=== PATIENT | female | born 1990 | race Two or more races ===

== ENCOUNTER 2017-02-20 07:24 | Day surgery (SDC) | payer SELFPAY ==
[~2017-02-20 07:24] MED LIST: Lactated Ringers 1,000 ML IV SCH
[2017-02-20] MEDS ORDERED: fentaNYL 250 MCG/5 ML SDV ONE (08:07)
[2017-02-20] MEDS ORDERED: Midazolam 1 MG/ML 2 ML SDV ONE (08:07)
[2017-02-20] MEDS ORDERED: Lidocaine 2% 5 ML SDV ONE (08:07)
[2017-02-20] MEDS ORDERED: Ondansetron 4 MG/2 ML SDV ONE (08:07)
[2017-02-20] MEDS ORDERED: Propofol 200 MG/20 ML SDV ONE (08:07)
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
[2017-02-20] MEDS ORDERED: fentaNYL 100 MCG/2 ML SDV IVPUSH PRN (08:09)
[2017-02-20] MEDS ORDERED: diphenhydrAMINE 50 MG/ML SDV ONE (08:54)
[2017-02-20] MEDS ORDERED: Dexamethasone 4 MG/ML 5 ML MDV ONE (08:54)
[2017-02-20] MEDS ORDERED: Ketorolac 30 MG/ML SDV ONE (09:02)
[2017-02-20] MEDS ORDERED: Misoprostol 200 MCG Tab ONE (09:07)
--- NOTE | 2017-02-20 09:50 | PCM.OPNOTE ---
[id number] [facility]. Placement of rectal cytotec Findings: Anteverted uterus that sounded to 9cm. Normal adnexa bilaterally. Pre Op Diagnosis: Retained products of conception. Failed conservative measures Post-Op Diagnosis: Same. Products of conception removed Anesthesia Technique: General LMA Primary Surgeon: Ariadna Riojas Anesthesia Provider: Maribell Curiel Edge Cutter: Linh Garcia Pathology: products of conception Fluid Replacement, Intraop: 1,300 EBL in mLs: 40 Complications: None known Condition: Good Free Text/Narrative:: Intake & Output 02/19/17 02/20/17 02/20/17 22:59 06:59 14:59 Output Total 75 Balance -75 JobID#[id number]
[2017-02-20 12:19] VITALS: BP 116/69
--- NOTE | 2017-02-21 12:41 | OR ---
SURGEON: Ariadna Riojas DATE OF PROCEDURE: 02/20/2017 BRIEF PREOPERATIVE HISTORY: This is a 26-year-old, G2, P0, presented to me initially at [facility] for her established OB visit. During that visit it was discovered that the patient apparently had an anembryonic . The patient had a history of spontaneous years earlier. The patient was counseled on her choices in regard to addressing her anembryonic in regard to expected management versus medicinal treatment versus surgical intervention. The patient at that time, chose no intervention. Shortly thereafter, the patient did undergo heavy vaginal bleeding with passage of what she thought was tissue and clots. The patient eventually was able to follow up in our clinic after she returned from [place] for family . On followup appointment, it was noted that the patient did have retained products of conception. In regard to retained products of conception, the patient desired to try medicinal intervention prior to having surgery as the patient really did not want to undergo surgery. The patient was given prescription for misoprostol 800 mcg per vagina then switch to oral for heavy bleeding every 6 hours x4 doses. After 4 doses, the patient returned to the office. A few days later the patient underwent ultrasound and did note that the patient still have retained products of conception. At this point, the patient was advised for surgical intervention secondary to retained products of conception, not responsive to medicinal treatment. The patient was apprised of the risk of surgery being bleeding, infection, possible damage to bowel, bladder, ureter, nerves, blood vessels, or any other adjacent structures in the pelvis. Possible risk of Asherman syndrome, the least encountered but most severe risk of hysterectomy in this patient, who has no living children of her own. The patient was also apprised of the risk of anesthesia and risk of thromboembolic disease associated with surgery. Knowing all of the above, the patient did consent to suction, dilation, and curettage for removal of retained products of conception. PREOPERATIVE DIAGNOSES: 1. Retained products of conception. 2. Failed conservative measures. POSTOPERATIVE DIAGNOSES: 1. Retained products of conception. 2. Failed conservative measures. 3. Products of conception removed. PROCEDURE PERFORMED: 1. Dilation and curettage. 2. Placement of rectal Cytotec. ANESTHESIA: General with LMA under Dr. Dnay Curiel and Linh Garcia CRNA. FLUID: Fluid replacement in the OR was 1300 mL. ESTIMATED BLOOD LOSS: 40 mL. PATHOLOGY: Products of conception. COMPLICATIONS: None known though secondary to the patient's bleeding, the general curettage in the second half of the surgery was completed under ultrasound guidance. CONDITION: Postop was good. FINDINGS: Anteverted uterus that sounded to 9 cm and normal adnexal bilaterally. DESCRIPTION OF PROCEDURE: The patient was met in the preop holding area, where the patient was identified and taken back to the operating room. The patient was transferred over to her OR bed and Venodynes were active prior to the induction of general anesthesia with LMA. After induction of general anesthesia, the patient was then placed in the dorsal lithotomy position in the [facility]. The patient was examined under anesthesia and found to have approximately 10-week size uterus with bilateral normal palpating adnexa. The patient was then prepped and draped in normal sterile fashion. A time-out was performed to ensure appropriate patient, appropriate physician, and appropriate procedure. The patient did not receive preoperative antibiotics as the patient was on doxycycline the preceding days prior to surgery which consisted of 100 mg b.i.d. and the patient still had remaining additional 2 days of antibiotics to undergo, prophylaxis for endometriosis secondary to retained products of conception. The patient was prepped and draped in the normal sterile fashion. An open-sided Graves speculum was placed in the patient's vagina. Anterior lip of the cervix was grasped with the long Allis clamp. The uterus gently sounded 9 cm. A slightly curved 7 suction curette was used to undergo procedure. The suction was activated and the curette was gently introduced to the uterine fundus and slowly rotated in clockwise fashion and as it was retracted from the uterus, this was done in approximately 3 passes and tissue was noted. The patient at this time after the recovery of tissue with second pass and third pass. The sharp curette was then introduced into the uterine fundus very gently and the uterus was gently scraped. The patient had heavier bleeding with the curettage portion of the procedure. At this point, to ensure that there was no breach of the uterine cavity the ultrasound was used. Ultrasound after sterilely draping the ultrasound probe, the abdominal ultrasound probe was used to locate the uterus and the sharp curette was gently advanced to the uterine fundus with noted slight resistance and this could be seen on the ultrasound. The uterus was then scraped in all 4 quadrants. Once this was complete, the sharp curettage portion of the procedure was completed and the suction curette was passed one more time to remove any remaining blood. This concluded the suction portion of the procedure. From the patient's vagina any excess blood was removed with the sponge on a stick. 1000 mcg of rectal Cytotec was placed. Gloves were changed. The patient was cleansed. The patient was taken down out of [facility]. The patient was eventually moved to her recovery bed. The patient was taken to recovery in awake and stable condition. The patient tolerated the procedure well. Sponge, lap, needle, and instrument counts were correct. CARLEE / JOSEFA /[id number] MTDNeal
== END 2017-02-20 11:07 | disposition home or self-care (01) ==
LOC: MW.SDS 07:24
PROVIDERS: ATTEND Obstetrics & Gynecology
PROC: 10D07Z8 Extraction of Products of Conception, Other, Via Natural or Artificial Opening (ICD-10-PCS; principal; 2017-02-20)
DX: O03.4 Incomplete spontaneous abortion without complication (principal); E66.9 Obesity, unspecified; Z87.891 Personal history of nicotine dependence; Z98.890 Other specified postprocedural states; Z68.29 Body mass index [BMI] 29.0-29.9, adult; Z79.2 Long term (current) use of antibiotics
CPT/HCPCS: 36415; 59812; 85025; 86850; 86900; 86901; A9270; J1100; J1200; J1885; J2250; J2405; J3010; J7120; 01965; 88305; J2704

== ENCOUNTER 2017-06-30 06:41 | Observation (INO) | payer BC ==
[2017-06-30] MEDS ORDERED: Sodium Chloride 0.9% 10 ML Syringe FLUSH PRN (06:43)
[2017-06-30] MEDS ORDERED: Sodium Chloride 0.9% 2.5 ML Syringe FLUSH PRN (06:43)
[2017-06-30] MEDS ORDERED: Morphine 2 MG/ML Syringe IVPUSH ONE (07:06)
[2017-06-30] MEDS ORDERED: Sodium Chloride 0.9% 1,000 ML IV ONE (07:06)
[2017-06-30] MEDS ORDERED: Ondansetron 4 MG/2 ML SDV IVPUSH ONE (07:06)
[2017-06-30] MEDS ORDERED: Iopamidol 755 MG/ML 500 ML Multipack Bottle IVPUSH STA (07:10)
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
[2017-06-30] MEDS ORDERED: HYDROmorphone 1 MG/ML Syringe IVPUSH ONE (07:53)
[2017-06-30] MEDS ORDERED: Sodium Chloride 0.9% 1,000 ML IV STA (08:37)
[2017-06-30] MEDS ORDERED: Sodium Chloride 0.9% 1,000 ML IV SCH (08:45)
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
[2017-06-30] MEDS: Morphine 4 MG/ML Syringe IVPUSH PRN ×2 (11:54→20:56)
[2017-06-30] MEDS ORDERED: Ondansetron 4 MG/2 ML SDV IVPUSH PRN (13:19)
[2017-06-30] MEDS ORDERED: Albuterol 0.083% 2.5 MG/3 ML Neb Soln NEB PRN (13:19)
[2017-06-30] MEDS: metroNIDAZOLE/Normal Saline 500 MG in Premix Bag 1 BAG IV SCH ×3 (13:30→23:59)
[2017-06-30] MEDS: Ciprofloxacin in D5W 400 MG in Premix Bag 1 BAG IV SCH ×2 (14:33)
--- NOTE | 2017-06-30 15:12 | US ---
EXAMINATION: Right upper quadrant ultrasound HISTORY: Pain COMPARISON: 06/30/2017 TECHNIQUE: Grayscale and color Doppler images obtained of the right upper quadrant. FINDINGS: The visualized pancreas appears normal. The liver is normal in contour, echotexture and siz e without a focal hepatic mass. The gallbladder wall thickness is normal. No pericholecystic fluid or shadowing gallstones. Sonographic Ray sign is reported positive. The right kidney measures 10.4 c m [id number] without evidence of hydronephrosis. Common bile duct measures 3 mm. IMPRESSION: 1. Reported positive sonographic Ray sign without secondary signs of cholecystitis.
[2017-06-30] MEDS: Sodium Chloride 0.9% 1,000 ML IV SCH (16:24)
--- NOTE | 2017-06-30 16:59 | CT ---
EXAM DATE: 06/30/17 PATIENT'S AGE: 26 [facility] Facility: [place], [place] Site . Site : 1990 Study: CT Abdomen/Pelvis [id number] 7:58:54 AM Ordering Physician: Isabell Phelps Final Report: INDICATION: Abdominal pain. TECHNIQUE: Contiguous axial images were acquired through the abdomen and pelvis after the intravenous administration of contrast. Sagittal and coronal reconstructions. COMPARISON: None. FINDINGS: Visualized lower chest: Heart size is within normal limits. No pericardial effusion. There is mild bibasilar atelectasis. No pleural fluid. Abdomen and pelvis: The liver, spleen, pancreas, gallbladder, bile ducts, adrenal glands and kidneys are unremarkable. Normal abdominal aorta. The stomach is nondistended. A number of nondilated fluid-filled loops of bowel are noted, with no appreciable bowel wall thickening. The appendix appears unremarkable. No free air. No free fluid. No lymphadenopathy by size criteria. Small fat containing umbilical hernia. Unremarkable urinary bladder. Uterus is present. No suspicious adnexal mass. There is a small cyst versus dominant follicle seen in the left ovary measuring approximately 1.6 cm. Bones: Postsurgical changes are seen in the lumbar spine with changes in the right iliac bone, presumably related to bone graft harvesting. IMPRESSION: 1. There are a number of fluid-filled, nondilated small bowel loops seen scattered throughout the abdomen and pelvis, without associated bowel wall thickening. Findings could be related to a low-grade enteritis. Recommend clinical correlation. 2. No significant findings are seen in the abdomen and pelvis. Incidental findings as noted above. Dictated by Xavier Brower MD @ 06/30/2017 8:13:13 AM Dictated by: Xavier Brower MD @ 06/30/2017 08:13:37 (Electronic Signature) Report Signed by Proxy. MARSHALL
[2017-07-01] MEDS: Ciprofloxacin in D5W 400 MG in Premix Bag 1 BAG IV SCH ×4 (01:11→14:18)
[2017-07-01] MEDS: Sodium Chloride 0.9% 1,000 ML IV SCH ×3 (01:11→19:22)
[2017-07-01] MEDS: Morphine 4 MG/ML Syringe IVPUSH PRN ×3 (03:18→19:22)
[2017-07-01 05:28] LABS: CHLORIDE,CL 108 mmol/L (98-110); SODIUM,NA 139 mmol/L (136-146)
[2017-07-01] MEDS: metroNIDAZOLE/Normal Saline 500 MG in Premix Bag 1 BAG IV SCH ×4 (05:29→23:16)
--- NOTE | 2017-07-01 08:09 | PCM.PN ---
- General Info Date of Service: 07/01/17 Admission Dx/Problem (Free Text): Admission Diagnosis/Problem Admission Diagnosis/Problem Enteritis Subjective Update: Feeling somewhat better today, pain is better, passed some gas after ambulating in hallway. Still bloated feeling and hurts to take a deep breath. No chest pain or SOB. No stools. Functional Status: Reports: Pain Controlled, Ambulating, Urinating - Review of Systems General: Reports: No Symptoms. Denies: Fever Pulmonary: Reports: No Symptoms. Denies: Shortness of Breath Cardiovascular: Reports: No Symptoms. Denies: Chest Pain Gastrointestinal: Reports: Abdominal Pain, Constipation, Other (bloated). Denies: Nausea Genitourinary: Reports: No Symptoms. Denies: Dysuria, Frequency, Burning, Pain Neurological: Reports: No Symptoms Psychiatric: Reports: No Symptoms - Patient Data Vitals - Most Recent: Last Vital Signs Temp 99.4 F 07/01/17 04:00 Pulse 98 07/01/17 04:00 Resp 16 07/01/17 04:00 BP 117/78 07/01/17 04:00 Pulse Ox 94 L 07/01/17 04:00 Weight - Most Recent: 72.5 kg I&O - Last 24 Hours: Intake & Output 06/30/17 07/01/17 07/01/17 22:59 06:59 14:59 Intake Total 1645 1100 Output Total 650 1000 Balance 995 100 Lab Results Last 24 Hours: Laboratory Results - last 24 hr 06/30/17 06/30/17 06/30/17 Range/Units 09:55 13:10 13:10 WBC (4.0-11.0) K/uL RBC (4.30-5.90) M/uL Hgb (12.0-16.0) g/dL Hct (36.0-46.0) % MCV (80.0-98.0) fL MCH (27.0-32.0) pg MCHC (31.0-37.0) g/dL RDW Std Deviation (28.0-62.0) fl RDW Coeff of Alon (11.0-15.0) % Plt Count (150-400) K/uL MPV (7.40-12.00) fL Neut % (Auto) (48.0-80.0) % Lymph % (Auto) (16.0-40.0) % [place] % (Auto) (0.0-15.0) % Eos % (Auto) (0.0-7.0) % Baso % (Auto) (0.0-1.5) % Neut # (Auto) (1.4-5.7) K/uL Lymph # (Auto) (0.6-2.4) K/uL [place] # (Auto) (0.0-0.8) K/uL Eos # (Auto) (0.0-0.7) K/uL Baso # (Auto) (0.0-0.1) K/uL Nucleated RBC % /100WBC Nucleated RBCs # K/uL Sodium (136-146) mmol/L Potassium (3.5-5.1) mmol/L Chloride (98-110) mmol/L Carbon Dioxide (21-31) mmol/L BUN (6.0-23.0) mg/dL Creatinine (0.6-1.5) mg/dL Est Cr Clr Drug Dosing mL/min Estimated GFR (MDRD) ml/min Glucose (60-110) mg/dL Calcium (8.8-10.8) mg/dL Total Bilirubin (0.1-1.5) mg/dL AST (5-40) IU/L ALT (8-54) IU/L Alkaline Phosphatase (40-150) Total Protein (6.0-8.0) g/dL Albumin (3.5-5.0) g/dL Globulin (2.0-3.5) g/dL Albumin/Globulin Ratio (1.3-2.8) Urine Color YELLOW Urine Appearance CLEAR Urine pH 7.0 (5.0-8.0) Ur Specific [place] <= 1.005 (1.001-1.035) Urine Protein NEGATIVE (NEGATIVE) mg/dL Urine Glucose (UA) NEGATIVE (NEGATIVE) mg/dL Urine Ketones NEGATIVE (NEGATIVE) mg/dL Urine Occult Blood TRACE-INTACT (NEGATIVE) Urine Nitrite NEGATIVE (NEGATIVE) Urine Bilirubin NEGATIVE (NEGATIVE) Urine Urobilinogen 1.0 (<2.0) EU/dL Ur Leukocyte Esterase NEGATIVE (NEGATIVE) Urine RBC 0-1 (0-2/HPF) Urine WBC 1-4 (0-5/HPF) Ur Epithelial Cells FEW (NONE-FEW) Urine Bacteria RARE (NEGATIVE) Monoscreen NEGATIVE (NEG) HIV 1&2 Ag/Ab, 4th Gen 0.1 (<1.0) 07/01/17 07/01/17 Range/Units 04:36 04:36 WBC 16.85 H (4.0-11.0) K/uL RBC 4.31 (4.30-5.90) M/uL Hgb 12.7 (12.0-16.0) g/dL Hct 39.0 (36.0-46.0) % MCV 90.5 (80.0-98.0) fL MCH 29.5 (27.0-32.0) pg MCHC 32.6 (31.0-37.0) g/dL RDW Std Deviation 47.1 (28.0-62.0) fl RDW Coeff of Alon 14 (11.0-15.0) % Plt Count 248 (150-400) K/uL MPV 11.50 (7.40-12.00) fL Neut % (Auto) 86.1 H (48.0-80.0) % Lymph % (Auto) 6.7 L (16.0-40.0) % [place] % (Auto) 6.4 (0.0-15.0) % Eos % (Auto) 0.7 (0.0-7.0) % Baso % (Auto) 0.1 (0.0-1.5) % Neut # (Auto) 14.5 H (1.4-5.7) K/uL Lymph # (Auto) 1.1 (0.6-2.4) K/uL [place] # (Auto) 1.1 H (0.0-0.8) K/uL Eos # (Auto) 0.1 (0.0-0.7) K/uL Baso # (Auto) 0.0 (0.0-0.1) K/uL Nucleated RBC % 0.0 /100WBC Nucleated RBCs # 0 K/uL Sodium 139 (136-146) mmol/L Potassium 4.0 (3.5-5.1) mmol/L Chloride 108 (98-110) mmol/L Carbon Dioxide 23 (21-31) mmol/L BUN 8 (6.0-23.0) mg/dL Creatinine 0.9 (0.6-1.5) mg/dL Est Cr Clr Drug Dosing 66.84 mL/min Estimated GFR (MDRD) > 60.0 ml/min Glucose 85 (60-110) mg/dL Calcium 8.7 L (8.8-10.8) mg/dL Total Bilirubin 0.9 (0.1-1.5) mg/dL AST 13 (5-40) IU/L ALT 9 (8-54) IU/L Alkaline Phosphatase 54 (40-150) Total Protein 6.0 (6.0-8.0) g/dL Albumin 3.4 L (3.5-5.0) g/dL Globulin 2.6 (2.0-3.5) g/dL Albumin/Globulin Ratio 1.3 (1.3-2.8) Urine Color Urine Appearance Urine pH (5.0-8.0) Ur Specific [place] (1.001-1.035) Urine Protein (NEGATIVE) mg/dL Urine Glucose (UA) (NEGATIVE) mg/dL Urine Ketones (NEGATIVE) mg/dL Urine Occult Blood (NEGATIVE) Urine Nitrite (NEGATIVE) Urine Bilirubin (NEGATIVE) Urine Urobilinogen (<2.0) EU/dL Ur Leukocyte Esterase (NEGATIVE) Urine RBC (0-2/HPF) Urine WBC (0-5/HPF) Ur Epithelial Cells (NONE-FEW) Urine Bacteria (NEGATIVE) Monoscreen (NEG) HIV 1&2 Ag/Ab, 4th Gen (<1.0) Henry Results Last 24 Hours: Microbiology 06/30/17 13:40 Influenza Type A Antigen Screen - Final Nasopharyngeal Swab - Nare, Left NEGATIVE INFLUENZA A VIRUS AG Influenza Type B Antigen Screen - Final NEGATIVE INFLUENZA B VIRUS AG 06/30/17 13:40 Group A Streptococcus Rapid Screen - Final Throat NEGATIVE STREP A SCREEN Med Orders - Current: Current Medications Albuterol (Proventil Neb Soln) 2.5 mg NEB Q2H PRN PRN Reason: Shortness Of Breath/wheezing Ciprofloxacin/Dextrose 400 mg/ (Premix) 200 mls @ 200 mls/hr IV Q12H [facility] Last Admin: 07/01/17 01:11 Dose: 200 mls/hr Metronidazole 500 mg/ Premix 100 mls @ 100 mls/hr IV QID [facility] Last Admin: 07/01/17 05:29 Dose: 100 mls/hr Sodium Chloride (Normal Saline) 1,000 mls @ 150 mls/hr IV ASDIRECTED LEANN Last Admin: 07/01/17 01:11 Dose: 150 mls/hr Morphine Sulfate (Morphine) 4 mg IVPUSH Q3H PRN PRN Reason: Pain Last Admin: 07/01/17 07:51 Dose: 4 mg Ondansetron HCl (Zofran) 4 mg IVPUSH Q4H PRN PRN Reason: Nausea Sodium Chloride (Saline Flush) 10 ml FLUSH ASDIRECTED PRN PRN Reason: Keep Vein Open Sodium Chloride (Saline Flush) 2.5 ml FLUSH ASDIRECTED PRN PRN Reason: Keep Vein Open Discontinued Medications Hydromorphone HCl (Dilaudid) 1 mg IVPUSH ONETIME ONE Stop: 06/30/17 07:54 Last Admin: 06/30/17 08:03 Dose: 1 mg Sodium Chloride (Normal Saline) 1,000 mls @ 999 mls/hr IV STAT ONE Stop: 06/30/17 08:06 Last Admin: 06/30/17 07:14 Dose: 999 mls/hr Sodium Chloride (Normal Saline) 1,000 mls @ 150 mls/hr IV ASDIRECTED LEANN Sodium Chloride (Normal Saline) 1,000 mls @ 150 mls/hr IV NOW STA Stop: 06/30/17 15:16 Last Admin: 06/30/17 08:38 Dose: 150 mls/hr Iopamidol (Isovue Multipack-370 (76%)) 85 ml IVPUSH ONETIME STA Stop: 06/30/17 07:11 Last Admin: 06/30/17 20:59 Dose: Not Given Morphine Sulfate (Morphine) 2 mg IVPUSH ONETIME ONE Stop: 06/30/17 07:07 Last Admin: 06/30/17 07:14 Dose: 2 mg Ondansetron HCl (Zofran) 4 mg IVPUSH ONETIME ONE Stop: 06/30/17 07:07 Last Admin: 06/30/17 07:13 Dose: 4 mg - Exam Quality Assessment: No: Supplemental Oxygen General: Alert, Oriented, Cooperative, No Acute Distress Neck: Supple Lungs: Clear to Auscultation, Normal Respiratory Effort Cardiovascular: Regular Rate, Regular Rhythm GI/Abdominal Exam: Normal Bowel Sounds, Soft, No Mass, Distended, Tender ( diffuse) Extremities: Normal Inspection, Normal Range of Motion, Non-Tender, No Pedal Edema, Normal Capillary Refill Psy/Mental Status: Alert, Normal Affect, Normal Mood - Problem List & Annotations (1) Abdominal pain SNOMED Code(s): 14165093 Code(s): R10.9 - UNSPECIFIED ABDOMINAL PAIN Status: Acute Current Visit: Yes Qualifiers: Abdominal location: generalized Qualified Code(s): R10.84 - Generalized abdominal pain (2) Leukocytosis SNOMED Code(s): 680106126 Code(s): D72.829 - ELEVATED WHITE BLOOD CELL COUNT, UNSPECIFIED Status: Acute Current Visit: Yes (3) Enteritis SNOMED Code(s): 56320308 Code(s): K52.9 - NONINFECTIVE GASTROENTERITIS AND COLITIS, UNSPECIFIED Status: Acute Current Visit: Yes - Problem List Review Problem List Initiated/Reviewed/Updated: Yes - My Orders Last 24 Hours: My Active Orders 06/30/17 11:35 Morphine 4 mg IVPUSH Q3H PRN 06/30/17 12:00 metroNIDAZOLE/Normal Saline [Flagyl 500 MG in NS 100 ML] 500 mg Premix Bag 1 bag IV QID 06/30/17 12:29 CDIFF TOX A+B [OP] Routine CULTURE STOOL + CAMPY+SHIGATOX [RM] Routine WBC, STOOL [OP] Routine Precautions [COMM] Routine 06/30/17 12:31 Blood Culture x2 Reflex Set [OM.PC] Stat 06/30/17 12:45 Sodium Chloride 0.9% [Normal Saline] 1,000 ml IV ASDIRECTED 06/30/17 12:52 CULTURE BLOOD [BC] Stat 06/30/17 13:10 CULTURE BLOOD [BC] Stat Hepatitis A [HAV AB, IGM] [REF] Routine 06/30/17 13:19 Oxygen Therapy [RC] PRN Up ad Alicia [RC] ASDIRECTED VTE/DVT Education [RC] PER UNIT ROUTINE Vital Signs [RC] Q4H Albuterol [Proventil Neb Soln] 2.5 mg NEB Q2H PRN Ondansetron [Zofran] 4 mg IVPUSH Q4H PRN Resuscitation Status Routine 06/30/17 13:20 Antiembolic Devices [RC] PER UNIT ROUTINE Intake and Output [RC] Q12H Sequential Compression Device [OM.PC] Per Unit Routine 06/30/17 13:21 RT Aerosol Therapy [RC] ASDIRECTED 06/30/17 13:40 CULTURE STREP A CONFIRMATION [RM] Routine STREP SCRN A RAPID W CULT CONF [RM] Routine 06/30/17 14:00 Ciprofloxacin in D5W [Cipro in D5W 400 MG/200 ML] 400 mg Premix Bag 1 bag IV Q12H 06/30/17 Dinner Nothing Per Oral Diet [DIET] 07/01/17 06:30 Abdomen 2V AP Flat Upright [CR] Timed - Plan Plan:: This 26 year old female admitted with abdominal pain and enteritis 1. Enteritis: Leukocytosis noted with hx of fevers at home. BC pending and Continue Cipro and Flagyl. Xray this morning showes non specific bowel gas pattern without evidence of obstruction. Will advance to CL, no nausea. Will obtain stool studies and abdominal ultrasound negative. Hep A pending. Continue IVFs. Analgesics and anti-emetics PRN 2. URI: Likely viral in nature. Strep, mono, influenza all negative. HIV negative as well. VTE prophylaxis: SCDs Dispo: 1-2 days pending improvement.
--- NOTE | 2017-07-01 11:41 | CR ---
EXAMINATION: Abdomen HISTORY: Pain COMPARISON: CT dated 06/30/2017 TECHNIQUE: AP and upright views FINDINGS: There is no definite free air. There is a small amount of gas noted within the colon howeve r no gas is noted within the rectum. Bowel gas is also noted within the small bowel, which appears no ndilated. No organomegaly. No abnormal calcifications identified. The visualized osseous structures a ppear unremarkable. IMPRESSION: 1. Nonspecific bowel gas pattern without definite evidence of obstruction.
[2017-07-01] MEDS: Acetaminophen 325 MG Tab PO PRN ×3 (12:38→21:00)
[2017-07-02] MEDS: Ciprofloxacin in D5W 400 MG in Premix Bag 1 BAG IV SCH ×2 (02:30)
[2017-07-02] MEDS: Morphine 4 MG/ML Syringe IVPUSH PRN (03:49)
[2017-07-02] MEDS: Sodium Chloride 0.9% 1,000 ML IV SCH (03:54)
[2017-07-02] MEDS: metroNIDAZOLE/Normal Saline 500 MG in Premix Bag 1 BAG IV SCH (05:48)
[2017-07-02 06:15] LABS: CHLORIDE,CL 107 mmol/L (98-110); SODIUM,NA 136 mmol/L (136-146)
[2017-07-02] MEDS: Acetaminophen 325 MG Tab PO PRN (10:12)
--- NOTE | 2017-07-02 11:43 | CR ---
EXAMINATION: Two-view chest (PA and Lateral views). HISTORY: Fever. FINDINGS: The trachea is midline. Poor inspiratory effort. The cardiomediastinal silhouette is within normal li mits. No pulmonary infiltrates, effusions or pneumothorax. Osseous structures appear unremarkable. IMPRESSION: No acute cardiopulmonary process.
[2017-07-02] MEDS ORDERED: Simethicone 80 MG Tab.Chew PO PRN (11:52)
[2017-07-02 12:12] VITALS: BP 140/96
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
[2017-07-02] MEDS ORDERED: metroNIDAZOLE 250 MG Tab PO SCH (14:00)
[2017-07-02] MEDS ORDERED: Ciprofloxacin 500 MG Tab PO SCH (14:00)
== END 2017-07-02 14:00 | disposition home or self-care (01) ==
LOC: MW.ED 06:41 → MW.MS 08:35
PROVIDERS: ADMIT Internal Medicine; ATTEND Internal Medicine
DX: K52.9 Noninfective gastroenteritis and colitis, unspecified (principal); R10.9 Unspecified abdominal pain; D72.829 Elevated white blood cell count, unspecified; J06.9 Acute upper respiratory infection, unspecified; R00.0 Tachycardia, unspecified; Z98.818 Other dental procedure status; Z98.890 Other specified postprocedural states
CPT/HCPCS: 36415; 71020; 74020; 74177; 76705; 80048; 80053; 81001; 82150; 83630; 83690; 84703; 85025; 86308; 86709; 87040; 87046; 87081; 87324; 87389; 87804; 87880; 96361; 96374; 96375; 99285; A9270; J0744; J1170; J2270; J2405; J7040; 87899; 96365; 96366; 96367; 96376; 99283; G0378